=== PATIENT | male | born 1945 | race Caucasian/White ===

== ENCOUNTER 2016-10-17 15:17 | Emergency (ER) | payer OTHER ==
[2016-10-17 15:24] VITALS: RESP 16
--- NOTE | 2016-10-17 15:28 | EDPHY ---
H & P Time Seen by Provider: 10/17/16 15:28 HPI/ROS: CHIEF COMPLAINT: Increasing shakiness and trouble walking HISTORY OF PRESENT ILLNESS: This 71-year-old man presents with the concern for increased shakiness and trouble walking. He said he has had symptoms for at least 3-4 months but he feels they have been worse for 2 weeks. He says that he has chance that both shaky and he feels a little bit unsteady walking, feeling like it is difficulty get started walking and once he is going it is difficult for him to stop. He denies headache or double vision or vertigo or neck pain. He denies ataxia or falling. REVIEW OF SYSTEMS: Eye: Recent improvement in vision after lens implant in the left eye this past week. ENT: no sore throat Cardiac: no chest pain or syncope Pulmonary: no cough or SOB Abdomen: no vomiting, diarrhea, abdominal pain Musculoskeletal: no back pain or neck pain Skin: no rash Neuro: no headache Constitutional: no fever, he has lost about 15 lb over the last 18 months. : no urinary symptoms A comprehensive 10 point review of systems is otherwise negative aside from elements mentioned in the history of present illness. PAST MEDICAL HISTORY: Hypertension and appendectomy at 6 years old. Left corneal lens implant this past Thursday. Social history: Nonsmoker, primary care is Jonathan Gracia at [facility]. No alcohol. General Appearance: Alert and conversant, cooperative. Eyes: No scleral icterus. Pupils 3 mm and reactive extraocular motion intact. ENT, Mouth: Normal mucous membranes. Respiratory: Normal respiratory effort, breath sounds equal, lungs are clear to auscultation. Cardiovascular: Regular rate and rhythm. Gastrointestinal: Abdomen is soft and non tender. Neurological: Alert and oriented x3. Normally conversant. Face symmetric, normal movement and sensation in all extremities. Very slight resting tremor. Normal [id number] and no pronator drift. Not ataxic. Skin: Warm and dry, no rashes. Musculoskeletal: No peripheral edema and no joint swelling. Blood done neck supple. Psychiatric: Not agitated. Emergency Department course/MDM: CBC, Chem 7, noncontrast head CT. Patient's presentation is still highly suggestive of Parkinson's. He does have follow up with the [facility] neurologist at 11:00 a.m. this coming Thursday. 1605: Normal CBC drawn as outpatient. Chemistry normal sodium, glucose. Patient and family state comfortable with discharge, and followup plan. Smoking Status: Never smoked Constitutional: Initial Vital Signs Temperature (C) 37 C 10/17/16 15:22 Heart Rate 88 10/17/16 15:22 Respiratory Rate 16 10/17/16 15:22 Blood Pressure 125/74 H 10/17/16 15:22 O2 Sat (%) 91 L 10/17/16 15:22 O2 Delivery Mode Room Air Allergies/Adverse Reactions: No Known Allergies Allergy (Unverified 10/17/16 15:25) Home Medications: Medication Instructions Recorded Losartan Potassium 10/17/16 Medical Decision Making - Diagnostics Imaging: Negative noncontrast head CT per Dr. Al at 4:05 p.m., reviewed personally by myself. Departure - Departure Disposition: Home, Routine, Self-Care Clinical Impression: Tremor Condition: Good Instructions: Tremors (ED) Additional Instructions: Negative head CT per Dr. Mynor Al from Radiology. Follow-up with [facility] neurologist this Thursday at 11:00 a.m. as previously scheduled. Referrals: Jonathan Gracia MD [Primary Care Provider] - As per Instructions
--- NOTE | 2016-10-17 16:07 | CT ---
CT Head Without Contrast History: Difficulty walking, history of Parkinson's. Comparison: None available. Technique: Axial unenhanced images were obtained from the vertex through the skull base. Dose reduct ion techniques were utilized. Findings: Price-white differentiation is preserved. There is mild diffuse cerebral atrophy with scatte red periventricular and subcortical low attenuation, suggesting chronic microvascular ischemic gliosi s. No intracranial hemorrhage is identified. Cavum septum pellucidum is noted. No extraaxial fluid c ollections are identified. There is no mass, mass effect or evidence of infarct. Atherosclerotic nav cification is present in the distal internal carotid arteries. The skull and skull base are unremarka ble. The paranasal sinuses and mastoid air cells are normally aerated. Impression: 1. No acute intracranial findings. 2. Diffuse cerebral atrophy with scattered periventricular and subcortical low attenuation consistent with chronic microvascular ischemic gliosis. Findings discussed with Rocael Nathan today at 1604 hours.
[2016-10-17 16:52] VITALS: BP 124/69; PULSE 75; TEMP 98.4; O2SAT 92
== END 2016-10-17 16:52 | disposition home or self-care (01) ==
DX: R25.1 Tremor, unspecified (principal); I10 Essential (primary) hypertension; R42 Dizziness and giddiness; Z13.29 Encounter for screening for other suspected endocrine disorder; Z79.899 Other long term (current) drug therapy
CPT/HCPCS: 82607-90

== ENCOUNTER 2016-10-20 12:04 | Emergency (ER) | payer OTHER ==
--- NOTE | 2016-10-20 12:24 | CPEKG ---
Heart Rate: 101 RR Interval: 594 P-R Interval: 144 QRSD Interval: 88 QT Interval: 336 QTC Interval: 436 P [place]: 86 QRS [place]: -66 T Wave [place]: 50 EKG Severity - ABNORMAL ECG - EKG Impression: SINUS TACHYCARDIA Electronically Signed By: Regino Alonso 20-Oct-2016 14:53:26
--- NOTE | 2016-10-20 12:57 | EDPHY ---
H & P Stated Complaint: seen last week at ed and pcp for same "feels shaky and disoriented" yet A&O Time Seen by Provider: 10/20/16 12:14 HPI/ROS: CHIEF COMPLAINT: Increasing weakness HISTORY OF PRESENT ILLNESS: The patient presents to the ED with complaints of increasing weakness. The patient was seen in the ED approximately 3 days ago for similar complaints. The patient reportedly was referred to Neurology who he is scheduled to see tomorrow for possible evaluation of new onset Parkinson' s disease. The patient denies taking any new medications. He is currently taking lisinopril. The patient denies fever, cough or congestion. He reports global weakness. He denies fall, headache, focal numbness or weakness. The patient has no complaints of dysuria. He denies recent antibiotic use. He denies acute pain. REVIEW OF SYSTEMS: A comprehensive 10 point review of systems is otherwise negative aside from elements mentioned in the history of present illness. Source: Patient Exam Limitations: No limitations - Personal History Current Tetanus/Diphtheria Vaccine: Yes Tetanus Vaccine Date: < 10 YEARS - Medical/Surgical History Hx Asthma: No Hx Chronic Respiratory Disease: No Hx Diabetes: No Hx Cardiac Disease: No Hx Renal Disease: No Hx Cirrhosis: No Hx Alcoholism: No Hx HIV/AIDS: No Hx Splenectomy or Spleen Trauma: No Other PMH: IMPLANT LEFT EYE - Social History Smoking Status: Never smoked - Physical Exam Exam: General Appearance: Alert, no distress Eyes: Pupils equal and round no pallor or injection ENT, Mouth: Mucous membranes moist Respiratory: There are no retractions, lungs are clear to auscultation Cardiovascular: Regular rate and rhythm Gastrointestinal: Abdomen is soft and nontender, no masses, bowel sounds normal Neurological: Alert and oriented x4, facial expression consistent with possible underlying Parkinson's, mild cogwheel rigidity noted Skin: Warm and dry, no rashes Musculoskeletal: Neck is supple nontender Extremities: symmetrical, full range of motion Psychiatric: Patient is oriented X 3, there is no agitation Constitutional: Initial Vital Signs Temperature (C) 36.4 C 10/20/16 12:10 Heart Rate 112 H 10/20/16 12:10 Respiratory Rate 20 10/20/16 12:10 Blood Pressure 159/88 H 10/20/16 12:10 O2 Sat (%) 94 10/20/16 12:10 O2 Delivery Mode Room Air Allergies/Adverse Reactions: No Known Allergies Allergy (Verified 10/20/16 12:09) Home Medications: Medication Instructions Recorded Losartan Potassium 10/17/16 Medical Decision Making ED Course/Re-evaluation: I reviewed the results of the CT scan performed in the emergency department 3 days ago along with the patient's outpatient laboratory studies which demonstrated a slightly elevated BUN [address] report from 3 days ago reveals: CT Head Without Contrast Impression: 1. No acute intracranial findings. 2. Diffuse cerebral atrophy with scattered periventricular and subcortical low attenuation consistent with chronic microvascular ischemic gliosis. The patient presents to the ED with clinical signs of mild dehydration in the setting of likely untreated Parkinson's disease. The patient did received 2 L of IV fluids. Laboratory testing was performed which demonstrated evidence of dehydration with an elevated BUN. The patient has no evidence of a urinary tract infection. The patient was re-evaluated at 2:45 p.m. and is comfortable being discharged home as he does have follow up with Neurology tomorrow. The patient will be staying with his family members until that time. They are comfortable with his plan to be discharged. Differential Diagnosis: Differential diagnosis considered includes Parkinson's disease, urinary tract infection, dehydration, metabolic abnormality, labyrinthitis, intracranial hemorrhage - Data Points Laboratory Results: Laboratory Results 10/20/16 12:25 10/20/16 12:25 10/20/16 10/20/16 13:09 12:25 WBC 10.28 H 10^3/uL (3.80-9.50) RBC 5.04 10^6/uL (4.40-6.38) Hgb 14.7 g/dL (13.7-17.5) Hct 43.7 % (40.0-51.0) MCV 86.7 fL (81.5-99.8) MCH 29.2 pg (27.9-34.1) MCHC 33.6 g/dL (32.4-36.7) RDW 14.3 % (11.5-15.2) Plt Count 288 10^3/uL (150-400) MPV 10.2 fL (8.7-11.7) Neut % (Auto) 81.4 H % (39.3-74.2) Lymph % (Auto) 10.0 L % (15.0-45.0) [place] % (Auto) 7.9 % (4.5-13.0) Eos % (Auto) 0.1 L % (0.6-7.6) Baso % (Auto) 0.3 % (0.3-1.7) Nucleat RBC Rel Count 0.0 % (0.0-0.2) Absolute Neuts (auto) 8.37 H 10^3/uL (1.70-6.50) Absolute Lymphs (auto) 1.03 10^3/uL (1.00-3.00) Absolute Monos (auto) 0.81 H 10^3/uL (0.30-0.80) Absolute Eos (auto) 0.01 L 10^3/uL (0.03-0.40) Absolute Basos (auto) 0.03 10^3/uL (0.02-0.10) Absolute Nucleated RBC 0.00 10^3/uL (0-0.01) Immature Gran % 0.3 % (0.0-1.1) Immature Gran # 0.03 10^3/uL (0.00-0.10) Sodium 147 H mEq/L (134-144) Potassium 4.3 mEq/L (3.5-5.2) Chloride 109 mEq/L (97-110) Carbon Dioxide 26 mEq/l (22-31) Anion Gap 12 mEq/L (8-16) BUN 40 H mg/dL (7-23) Creatinine 0.9 mg/dL (0.7-1.3) Estimated GFR > 60 Glucose 139 H mg/dL (70-100) Calcium 9.0 mg/dL (8.5-10.4) Urine Color YELLOW Urine Appearance HAZY Urine pH 5.0 (5.0-7.5) Ur Specific [place] 1.025 (1.002-1.030) Urine Protein 1+ H (NEGATIVE) Urine Ketones TRACE H (NEGATIVE) Urine Blood 2+ H (NEGATIVE) Urine Nitrate NEGATIVE (NEGATIVE) Urine Bilirubin NEGATIVE (NEGATIVE) Urine Urobilinogen NEGATIVE EU (0.2-1.0) Ur Leukocyte Esterase NEGATIVE (NEGATIVE) Urine RBC 1-3 /hpf (0-3) Urine WBC NONE SEEN /hpf (0-3) Ur Epithelial Cells TRACE /lpf (NONE-1+) Urine Mucus TRACE /lpf (NONE-1+) Ur Culture Indicated? NOT INDICATED (NI) Urine Glucose NEGATIVE (NEGATIVE) Medications Given: Discontinued Medications Sodium Chloride (Ns) 1,000 mls @ 0 mls/hr IV ONCE ONE PRN Reason: Wide Open Stop: 10/20/16 13:37 Last Admin: 10/20/16 13:40 Dose: 1,000 mls Sodium Chloride (Ns) 1,000 mls @ 0 mls/hr IV ONCE ONE PRN Reason: Wide Open Stop: 10/20/16 13:37 Last Admin: 10/20/16 14:20 Dose: 1,000 mls Departure - Departure Disposition: Home, Routine, Self-Care Clinical Impression: Dizziness, Dehydration Condition: Good Instructions: Dizziness (ED), Lightheadedness (ED) Additional Instructions: 1. Please follow up as scheduled with your lead pony rider and neurologist on Thursday.
[2016-10-20 12:59] LABS: % IMMATURE GRANULYOCYTES 0.3 % (0.0-1.1); ABSOLUTE IMMATURE GRANULOCYTES 0.03 10^3/uL (0.00-0.10); ADD DIFF? NO; ADD MORPH? NO; ADD SCAN? NO; ATYPICAL LYMPHOCYTE FLAG 0 (0-99); FRAGMENT RBC FLAG 0 (0-99); HEMATOCRIT 43.7 % (40.0-51.0); HEMOGLOBIN 14.7 g/dL (13.7-17.5); LEFT SHIFT FLG 0 (0-99); LIPEMIA HEMOLYSIS FLAG 80 (0-99); MEAN CELL HEMOGLOBIN 29.2 pg (27.9-34.1); MEAN CELL HEMOGLOBIN CONCENTR. 33.6 g/dL (32.4-36.7); MEAN CELL VOLUME 86.7 fL (81.5-99.8); MEAN PLATELET VOLUME 10.2 fL (8.7-11.7); PLATELET CLUMPS FLAG 0 (0-99); PLATELET COUNT 288 10^3/uL (150-400); RED BLOOD CELL COUNT 5.04 10^6/uL (4.40-6.38); RED CELL DISTRIBUTION WIDTH 14.3 % (11.5-15.2)
[2016-10-20 13:08] LABS: ANION GAP 12 mEq/L (8-16); CARBON DIOXIDE 26 mEq/l (22-31); CHLORIDE 109 mEq/L (97-110); CREATININE 0.9 mg/dL (0.7-1.3); GLOMERULAR FILTRATION RATE > 60; GLUCOSE 139 mg/dL (70-100); POTASSIUM 4.3 mEq/L (3.5-5.2); SODIUM 147 mEq/L (134-144)
[2016-10-20 13:25] LABS: COLOR YELLOW; LEUKOCYTE ESTERASE,URINE NEGATIVE (NEGATIVE); NITRITE,URINE NEGATIVE (NEGATIVE)
[2016-10-20 13:30] LABS: MUCUS TRACE /lpf (NONE-1+)
[2016-10-20 13:31] LABS: WBC,URINE NONE SEEN /hpf (0-3)
[2016-10-20] MEDS ORDERED: NS 1,000 ML IV ONE ×2 (13:36)
[2016-10-20 13:56] VITALS: RESP 14; O2SAT 96
[2016-10-20 14:56] VITALS: BP 133/78; PULSE 70; TEMP 99
== END 2016-10-20 14:55 | disposition home or self-care (01) ==
DX: R42 Dizziness and giddiness (principal); E86.0 Dehydration; R00.0 Tachycardia, unspecified

== ENCOUNTER 2016-10-30 10:30 | Inpatient (IN) | payer OTHER ==
[2016-10-30 11:23] LABS: % IMMATURE GRANULYOCYTES 0.3 % (0.0-1.1); ABSOLUTE IMMATURE GRANULOCYTES 0.03 10^3/uL (0.00-0.10); ADD DIFF? NO; ADD MORPH? NO; ADD SCAN? NO; ATYPICAL LYMPHOCYTE FLAG 0 (0-99); FRAGMENT RBC FLAG 0 (0-99); HEMATOCRIT 40.3 % (40.0-51.0); HEMOGLOBIN 13.4 g/dL (13.7-17.5); LEFT SHIFT FLG 0 (0-99); LIPEMIA HEMOLYSIS FLAG 80 (0-99); MEAN CELL HEMOGLOBIN 28.9 pg (27.9-34.1); MEAN CELL HEMOGLOBIN CONCENTR. 33.3 g/dL (32.4-36.7); PLATELET CLUMPS FLAG 0 (0-99); PLATELET COUNT 334 10^3/uL (150-400); RED BLOOD CELL COUNT 4.63 10^6/uL (4.40-6.38); RED CELL DISTRIBUTION WIDTH 14.2 % (11.5-15.2)
[2016-10-30 11:49] LABS: ANION GAP 10 mEq/L (8-16); CALCIUM 8.6 mg/dL (8.5-10.4); CARBON DIOXIDE 25 mEq/l (22-31); CHLORIDE 103 mEq/L (97-110); CREATININE 0.8 mg/dL (0.7-1.3); ETHANOL SERUM < 10 mg/dL (0-10); GLOMERULAR FILTRATION RATE > 60; GLUCOSE 90 mg/dL (70-100); POTASSIUM 4.9 mEq/L (3.5-5.2); SODIUM 138 mEq/L (134-144)
[2016-10-30 12:19] LABS: COLOR YELLOW; LEUKOCYTE ESTERASE,URINE NEGATIVE (NEGATIVE); NITRITE,URINE NEGATIVE (NEGATIVE)
--- NOTE | 2016-10-30 12:36 | EDPHY ---
HPI/HX/ROS/PE/MDM Narrative: Chief complaint: Anxiety and paranoia HPI: 71-year-old male being brought in by his son for concerns about increasing anxiety and paranoia. Patient has had multiple stressors recently. These include recent lens replacement in his left eye. Patient has also been currently worked up by Neurology, Dr. wang, for possible diagnosis of Parkinson' s disease. Patient has also been having concerns about his financial situation. This patient has been feeling increasingly anxious and feels that he has not have adequate funds at this time. Patient's son states that he has been seemingly increasingly irrational and anxious. Today the patient became anxious and the son was unable to calm him down. Patient denies recent illness. No fevers or chills. No nausea or vomiting. No chest pain or shortness of breath. Patient admits to being feeling anxious. Son denies any no short-term memory loss. Patient is not suicidal at this time. Denies feeling depressed. Denies any intentional ingestions. ROS: 10 point Review of Systems is negative except as noted in the HPI. Physical exam: Gen: Awake, Alert, No Distress HEENT: Nose: no rhinorrhea Eyes: PERRLA, EOMI Mouth: Moist mucosa Neck: Supple, no JVD Chest: nontender, lungs clear to auscultation Heart: S1, S2 normal, no murmur Abd: Soft, non-tender, no guarding Back: no CVA tenderness, no midline tenderness Ext: no edema, non-tender Skin: no rash Neuro: CN II-XII intact, Sensation grossly intact, Strength 5/5 in bilateral upper and lower extremities (Reggie Orozco) ED Course: 71-year-old male with multiple stress presenting with anxiety and possible paranoia secondary to this. Sinus concerned about his changes in mental state. Patient hears awake and alert and aye for safety. Will medically clear him and asked for mental health evaluation so that we can provide him resources for increasing stressors and anxiety. Pt is medically cleared. 1500 Pt s/o to Dr. Gonzalez pending evaluation. (Reggie Orozco) I assumed care of this patient from Dr. Ruiz at 3:00 p.m.. Patient has been cooperative while under my care. He underwent a mental health evaluation and is felt appropriate for inpatient treatment. He is being admitted to [facility]. I have signed the EMTALA form. (Alysia Gonzalez) - Data Points Laboratory Results: Laboratory Results 10/30/16 11:15 10/30/16 11:15 10/30/16 10/30/16 11:45 11:15 WBC 10.24 H 10^3/uL (3.80-9.50) RBC 4.63 10^6/uL (4.40-6.38) Hgb 13.4 L g/dL (13.7-17.5) Hct 40.3 % (40.0-51.0) MCV 87.0 fL (81.5-99.8) MCH 28.9 pg (27.9-34.1) MCHC 33.3 g/dL (32.4-36.7) RDW 14.2 % (11.5-15.2) Plt Count 334 10^3/uL (150-400) MPV 10.0 fL (8.7-11.7) Neut % (Auto) 84.0 H % (39.3-74.2) Lymph % (Auto) 9.3 L % (15.0-45.0) [place] % (Auto) 6.0 % (4.5-13.0) Eos % (Auto) 0.2 L % (0.6-7.6) Baso % (Auto) 0.2 L % (0.3-1.7) Nucleat RBC Rel Count 0.0 % (0.0-0.2) Absolute Neuts (auto) 8.61 H 10^3/uL (1.70-6.50) Absolute Lymphs (auto) 0.95 L 10^3/uL (1.00-3.00) Absolute Monos (auto) 0.61 10^3/uL (0.30-0.80) Absolute Eos (auto) 0.02 L 10^3/uL (0.03-0.40) Absolute Basos (auto) 0.02 10^3/uL (0.02-0.10) Absolute Nucleated RBC 0.00 10^3/uL (0-0.01) Immature Gran % 0.3 % (0.0-1.1) Immature Gran # 0.03 10^3/uL (0.00-0.10) Sodium 138 mEq/L (134-144) Potassium 4.9 mEq/L (3.5-5.2) Chloride 103 mEq/L (97-110) Carbon Dioxide 25 mEq/l (22-31) Anion Gap 10 mEq/L (8-16) BUN 18 mg/dL (7-23) Creatinine 0.8 mg/dL (0.7-1.3) Estimated GFR > 60 Glucose 90 mg/dL (70-100) Calcium 8.6 mg/dL (8.5-10.4) TSH 2.080 uIU/mL (0.465-4.680) Urine Color YELLOW Urine Appearance CLEAR Urine pH 7.0 (5.0-7.5) Ur Specific [place] 1.014 (1.002-1.030) Urine Protein NEGATIVE (NEGATIVE) Urine Ketones NEGATIVE (NEGATIVE) Urine Blood 1+ H (NEGATIVE) Urine Nitrate NEGATIVE (NEGATIVE) Urine Bilirubin NEGATIVE (NEGATIVE) Urine Urobilinogen NEGATIVE EU (0.2-1.0) Ur Leukocyte Esterase NEGATIVE (NEGATIVE) Urine RBC 3-5 H /hpf (0-3) Urine WBC 1-3 /hpf (0-3) Ur Epithelial Cells NONE SEEN /lpf (NONE-1+) Urine Glucose NEGATIVE (NEGATIVE) Urine Opiates Screen NEGATIVE (NEGATIVE) Urine Barbiturates NEGATIVE (NEGATIVE) Ur Phencyclidine Scrn NEGATIVE (NEGATIVE) Ur Amphetamine Screen NEGATIVE (NEGATIVE) U Benzodiazepines Scrn NEGATIVE (NEGATIVE) Urine Cocaine Screen NEGATIVE (NEGATIVE) U Marijuana (THC) Screen NEGATIVE (NEGATIVE) Ethyl Alcohol < 10 mg/dL (0-10) Medications Given: Discontinued Medications Lorazepam (Ativan) 1 mg PO EDNOW ONE Stop: 10/30/16 19:58 Last Admin: 10/30/16 20:02 Dose: 1 mg General Time Seen by Provider: 10/30/16 10:56 Initial Vital Signs: Initial Vital Signs Temperature (C) 36.4 C 10/30/16 10:31 Heart Rate 97 10/30/16 10:31 Respiratory Rate 16 10/30/16 10:31 Blood Pressure 162/86 H 10/30/16 10:31 O2 Sat (%) 94 10/30/16 10:31 O2 Delivery Mode Room Air Allergies/Adverse Reactions: No Known Allergies Allergy (Verified 10/20/16 12:09) Home Medications: Medication Instructions Recorded Losartan Potassium [Cozaar 25 mg 25 mg PO DAILY 10/17/16 (*)] Departure - Departure Disposition: [facility] IP Clinical Impression: Anxiety Condition: Good
[2016-10-30] MEDS ORDERED: LORazepam 1 MG TAB PO ONE (19:57)
[2016-10-31] MEDS ORDERED: ACETAMINOPHEN 325 MG TAB PO PRN (01:28)
[2016-10-31] MEDS ORDERED: MAGNESIUM HYDROXIDE 30 ML UDCUP PO PRN (01:28)
[2016-10-31] MEDS ORDERED: LORazepam 0.5 MG TAB PO PRN (01:28)
[2016-10-31] MEDS ORDERED: MAG HYDROX/AL HYDROX/SIMETH 30 ML UDCUP PO PRN (01:28)
[2016-10-31] MEDS ORDERED: LOSARTAN POTASSIUM 25 MG TAB PO SCH (12:00)
[2016-10-31] MEDS: LOSARTAN POTASSIUM 50 MG TAB PO SCH (13:18)
--- NOTE | 2016-10-31 16:40 | BAPA ---
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 The patient was reportedly in his normal state of physica l and mental health until approximately 2 weeks prior to admission. At that time he had a lens impla nt surgery on his eye, and he states that as soon as he woke up he felt "obsessed with fear." He rep orts intense anxiety, and is focused now on believing that he is running out of money. His son gave a collateral history to the emergency department that the patient speaks nonstop of not having enough money to pay his bills, and the fact that he is going to become destitute and a burden on the family . He has not been eating or buying food because he does not want to spend the money and has lost 15 pounds. He admits to being "afraid of everything" and states that he cannot sleep at night and "worr ies constantly." As mentioned above, the patient has no history of psychiatric treatments or similar symptoms to this. Patient's son states that the family did not see this coming, or was not able to relate it to any s pecific inciting factor except for this surgery. Conversation with the patient's outpatient internis t, Dr. Jonathan Gracia, reveals that he has only seen him one time, at which time he diagnosed him wit h likely Parkinson disease. He referred him for a CT scan of the head, that revealed diffuse atrophy with scattered periventricular and subcortical low attenuation, consistent with chronic microvascula r ischemic gliosis. He then also referred the patient for a neurologic evaluation with a neurologist who works in their office, and was diagnosed with Parkinson disease. The neurologist suggested they do an MRI, which was actually scheduled for today and that patient was not able to attend. Dr. Jake mcghee does not know the patient well, and states that he had none of these paranoid or psychotic symp toms when he saw him. PAST PSYCHIATRIC HISTORY: Noncontributory for any previous psychiatric treatments of any kind. He h as had no previous hospitalizations, and has taken no previous psychotropic medications. ALLERGIES: No known medical allergies. CURRENT MEDICATIONS: Losartan 25 mg daily. PAST MEDICAL HISTORY: Significant for hypertension, and a recent diagnosis of likely Parkinson disea se. SOCIAL HISTORY: The patient was for 20 years and in 1991. He has not remarried. Ronaldo canas has a son who lives in [place] and is his primary support, and a daughter in [place]. He himse lf lives in [place] and is retired. 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 He has a Bachelor of Science in electrical engineering. He was born and raised in [place]. 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 FAMILY HISTORY: Patient's mother had Parkinson disease, otherwise noncontributory for psychiatric il lness. LABORATORY DATA: Admission laboratory, CBC shows a white count of 10.24, neutrophils 84%. Serum anuradha mistries are normal, TSH is normal. Urinalysis showed 3-5 red cells, with 1+ blood, and 1-3 cells. No epithelial cells or casts are noted, and LE and nitrites are negative. Urine drug screen was negative for all substances, alcohol was less than detectable. MENTAL STATUS EXAMINATION: Reveals a disheveled male, wearing hospital garb. He has an od d smile on his face and though he is engaging his eye contact is prolonged with a decreased eye blink . He is somewhat stiff and has a mild Parkinsonian gait. He is engaging and conversant, and while ronaldo canas displays a generally linear thought process it is indicated with his paranoid themes. His thought content reveals the continued belief that he is going to go broke and that he is a burden to his fami ly. He subjectively complains of anxiety. He is alert and oriented to person, place, time, and situ ation, his sensorium is clear. There is no evidence of delirium. There are no gross cognitive defic its appreciated. Patient's premorbid intellect appears to be above average as evidenced by his educa tional and occupational histories. He denies any thoughts of suicide. His insight and judgment appe ar to be impaired. IMPRESSION: 1. 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 2. Recent surgery. 3. Marginal support. 4. Advanced age. The patient is a 71-year-old male, with no previous psychiatric history, who presents with some acute paranoia. He is gravely disabled as he is unable to think or reason outside of these delu sional systems, and has begun to quit eating or care for himself because of his delusions. He is ple asant and cooperative, and willing to participate in treatment. He does, however, completely lack in sight into the nature and severity of his illness. Despite his acute paranoia his recent diagnosis o f Parkinson is concerning, and will certainly give us pause before we use any antipsychotics to treat his paranoia. I would like to obtain a neurologic consultation and see if they have other recommend ations, or would like to order the MRI that he was supposed to have had today. ESTIMATED LENGTH OF STAY: Is 3 to 5 days. /[id number]/MODL
--- NOTE | 2016-10-31 19:30 | BCON ---
[f rep st] BEHAVIORAL HEALTH CONSULTATION DATE OF CONSULTATION: 10/31/2016 REFERRING PHYSICIAN: Dr. Bush REASON FOR CONSULTATION: Medical clearance for inpatient behavioral health stay. HISTORY OF PRESENT ILLNESS: The patient came to the emergency department, brought in by his son, with increasing anxiety and paranoia. He reports that he had a recent lens replacement in his left eye and that the tape that was used for an eye patch after the procedure caused neurologic damage. The patient 's son had reported that he was increasingly irrational and anxious. The son was unable to calm him down yesterday, so brought him to the emergency department. He was evaluated by the mental health team and admitted for further psychiatric care. He is currently without any acute medical complaints. PAST MEDICAL HISTORY: He has a history of hypertension. He denies any other history of medical illnesses. PAST SURGICAL HISTORY: He denies any surgical history. MEDICATIONS: He was taking losartan 25 mg p.o. daily. ALLERGIES: There are no known drug allergies. SOCIAL HISTORY: He is . He lives alone. He has a local son and omebrvin-hc-zja. 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 He is a nonsmoker and nondrinker. FAMILY HISTORY: Noncontributory. REVIEW OF SYSTEMS: He thinks he has lost some weight, since he does not think he has been eating and drinking enough while he has been in this anxious state. He denies loss of sense of smell or hearing loss. He denies fevers or chills. nausea, vomiting, constipation, diarrhea, headaches, numbness, tingling or weakness of the extremities. He has not had falls. He reports that his handwriting has gotten smaller and otherwise a 10-point review of systems is negative. PHYSICAL EXAM: VITAL SIGNS: Blood pressure is 139/62, heart rate is 82, respiratory rate is 16, oxygen saturation is 95% on room air. Temperature is 36.8 degrees centigrade. His weight is 64.4 kg for a body mass index of 22.9. GENERAL: This is a well-nourished, well-developed man, appears his chronologic age. Cooperative and in no acute distress. HEENT: Extraocular movements are intact. Pupils are equal, round, and reactive to light and accommodation. Mucous membranes are moist. Dentition is in good condition. NECK: Supple. HEART: There is a regular rate and rhythm with no murmurs, rubs, or gallops. LUNGS: Clear to auscultation bilaterally. ABDOMEN: Soft, nontender, nondistended with normoactive bowel sounds. EXTREMITIES: There is no cyanosis , clubbing, or edema. Radial and dorsalis pedis pulses are 2+ bilaterally. NEUROLOGIC: He is alert and oriented x3. Cranial nerves 2-12 are grossly intact. There is no focal weakness. Sensation is intact to light touch. He has bradykinesia with a reduced blink rate and otherwise slow movements. He has been somewhat masked facies. He has a slow gait, narrow based with en bloc turning. LABORATORY STUDIES: Drawn in the emergency department: Hematology showed an elevated white blood cell count at 10.24 without a left shift. Hemoglobin was slightly low at 13.4. MCV was normal. Platelet count was normal. Serum chemistry revealed normal renal function, electrolytes, and TSH. Urine showed 1 + blood and 3-5 red blood cells. Toxicology screen in the serum was negative for ethyl alcohol and the urine was negative for any substances of abuse. Other recent labs on 10/17/2016: His vitamin B12 level was normal at 424. His folate was normal at 17.5. TSH was normal at 1.92. He has had an elevated total bilirubin in June of 2016 and in 2014 at 1.5. Liver functions were otherwise within normal limits. His lipid panel done on 10/17/2016 was low risk with a low cholesterol at 107 and a normal HDL at 52. IMAGING: A head CT was done on 10/17/2016 which showed diffuse cerebral atrophy with scattered periventricular and subcortical low attenuation, consistent with chronic microvascular ischemic gliosis. Otherwise, there were no acute intracranial findings. ASSESSMENT/RECOMMENDATIONS: 1. Mental health issues. Pending further evaluation and management per Psychiatry and the mental health team. 2. Hypertension. Advised continuing losartan. He said he had missed it for several days which might explain his elevated blood pressure in the emergency department. He is, however, normotensive today. 3. Likely parkinsonism. Given his head CT, query vascular parkinsonism versus degenerative. He is planning to have an evaluation by a neurologist after his discharge from inpatient psychiatry. 4. Hematuria. There was an abdominal CT done in the past to evaluate it. If it persists, would advise urology evaluation after discharge. I see no medical contraindications to the patient's continued stay in the inpatient behavioral health unit or to any psychiatric medications or procedures. Thank you very much for including me in the care of this patient and please do not hesitate to contact me or the hospitalist service should there be need for further medical evaluation. /[id number]/MODL MTDD
[2016-11-01] MEDS: LOSARTAN POTASSIUM 50 MG TAB PO SCH (09:38)
--- NOTE | 2016-11-01 19:40 | SOAPPROG ---
SOAP Progress Note Assessment/Plan: Assessment: 71yo CM with no prior psych hx, with onset of Parkinsonian sxs 07/2016 noted when unable to use chopsticks, with incr anxiety prior to R eye lens replacement 2 wks ago, subsequently noted to have onset and progression of delusional sxs resulting in decr self care, poor po intake, brought to ED by family, admitted on M-1 for grave disability. 11/03/16 09:29 per staff, slept 9.5 hrs. anxious, slow, lethargic, family reported pt w/dozing off mid-sentence in recent days and continues w/irrational financial concerns pt talked of feeling anxious, and does feel thoughts and speed are slowed. denies feeling tired. slept well. expressed concerns that the glue from eye patch after lens surgery must have gotten absorbed into his eye and worked its way to brain/back of his head to occipital region where he feels pressure currently. reports +urinary urgency and has had occasional accident but no other incontinence, no dysuria. some neck stiffness, not new but recent onset over last several days. does feel some stiffness, and able to t/a his mother having had PD-like dz which he watched progress over many yrs until lost mobility and "drooled", and she at 94yo. Pt does worry about having the same. worried about whether current hospitalization was covered by insurance. calm, cooperative, pleasant, engaged, wearing glasses which are not clean, neatly dressed, good eye contact, low vol speech, nml rate but with mild masked facies, able to smile appropriately and is A/Ox3. anxious mood, affect constricted, denies feeling depressed. denies any si/hi or ah/vh. continues to express delusional concerns about finances despite numerous reassurances, p/e: +cogwheel rigidity BUE but no resting tremor noted. steady gait. Plan: -requested neurology consult, will see pt tomorrow. based on provided hx and review of records, no acute concerns for today -lorazepam 0.5mg prn anxiety. not using. add melatonin 3mg hs prn insomnia. -avoid any neuroleptics due to risks in parkinson sydromes, incl possible LBD -M-1 exp 11/02 2029 Objective: Vital Signs Temp Pulse Resp BP Pulse Ox 36.2 C 84 18 132/84 H 94 11/01/16 09:41 11/01/16 09:41 11/01/16 09:41 11/01/16 09:41 11/01/16 09:41 - Time Spent With Patient Time Spent With Patient: 25 min - Pending Discharge Pending Discharge Within 24 Hours: No Pending Discharge Within 48 Hours: No ICD10 Worksheet Patient Problems: Problems Problem Status Diagnosed Delusional disorder Acute - ICD10 Problem Qualifiers (1) Anxiety (2) Delusional disorder
[2016-11-01 20:00] LABS: % IMMATURE GRANULYOCYTES 0.5 % (0.0-1.1); ABSOLUTE IMMATURE GRANULOCYTES 0.06 10^3/uL (0.00-0.10); ADD DIFF? NO; ADD MORPH? NO; ADD SCAN? NO; ATYPICAL LYMPHOCYTE FLAG 0 (0-99); FRAGMENT RBC FLAG 0 (0-99); HEMATOCRIT 39.6 % (40.0-51.0); HEMOGLOBIN 13.1 g/dL (13.7-17.5); LEFT SHIFT FLG 0 (0-99); LIPEMIA HEMOLYSIS FLAG 80 (0-99); MEAN CELL HEMOGLOBIN 29.2 pg (27.9-34.1); MEAN CELL HEMOGLOBIN CONCENTR. 33.1 g/dL (32.4-36.7); MEAN CELL VOLUME 88.2 fL (81.5-99.8); MEAN PLATELET VOLUME 10.2 fL (8.7-11.7); PLATELET CLUMPS FLAG 0 (0-99); PLATELET COUNT 380 10^3/uL (150-400); RED BLOOD CELL COUNT 4.49 10^6/uL (4.40-6.38); RED CELL DISTRIBUTION WIDTH 13.9 % (11.5-15.2)
[2016-11-01 20:05] LABS: COLOR PALE YELLOW; LEUKOCYTE ESTERASE,URINE NEGATIVE (NEGATIVE); NITRITE,URINE NEGATIVE (NEGATIVE)
[2016-11-01] MEDS: MELATONIN 3 MG TAB PO PRN (23:55)
[2016-11-02] MEDS: LOSARTAN POTASSIUM 50 MG TAB PO SCH (07:51)
--- NOTE | 2016-11-02 11:16 | SOAPPROG ---
SOAP Progress Note Assessment/Plan: Assessment: 71yo CM with no prior psych hx, with onset of Parkinsonian sxs 07/2016 noted when unable to use chopsticks, with incr anxiety prior to R eye lens replacement 2 wks ago, subsequently noted to have onset and progression of delusional sxs resulting in decr self care, poor po intake, brought to ED by family, admitted on M-1 for grave disability. 11/01/16 16:29 per staff, slept 9.5 hrs. anxious, slow, lethargic, family reported pt w/dozing off mid-sentence in recent days and continues w/irrational financial concerns pt talked of feeling anxious, and does feel thoughts and speed are slowed. denies feeling tired. slept well. expressed concerns that the glue from eye patch after lens surgery must have gotten absorbed into his eye and worked its way to brain/back of his head to occipital region where he feels pressure currently. reports +urinary urgency and has had occasional accident but no other incontinence, no dysuria. some neck stiffness, not new but recent onset over last several days. does feel some stiffness, and able to t/a his mother having had PD-like dz which he watched progress over many yrs until lost mobility and "drooled", and she at 94yo. Pt does worry about having the same. worried about whether current hospitalization was covered by insurance. calm, cooperative, pleasant, engaged, wearing glasses which are not clean, neatly dressed, good eye contact, low vol speech, nml rate but with mild masked facies, able to smile appropriately and is A/Ox3. anxious mood, affect constricted, denies feeling depressed. denies any si/hi or ah/vh. continues to express delusional concerns about finances despite numerous reassurances, p/e: +cogwheel rigidity BUE but no resting tremor noted. steady gait. Plan: -requested neurology consult, will see pt tomorrow. based on provided hx and review of records, no acute concerns for today -lorazepam 0.5mg prn anxiety. not using. add melatonin 3mg hs prn insomnia. -avoid any neuroleptics due to risks in parkinson sydromes, incl possible LBD -M- exp 11/02 2030 also repeated CBC and UA due to noted mild incr WBC, f/u urinary complaints. 11/02/16 10:01 per staff, pt slept uneventfully last night seen by neuro this AM, and Dr. Andre came to discuss findings with team. has some atypical findings and history but concerns present for degenerative parkinsonian syndrome, consider LBD. neuro to t/w family as well. Pt did well on MMSE 30/30 and with verbal fluency. on 1:1, pt reports overall feeling well. states he is in psych hosp for " extreme anxiety" he relates to glue from eye patch he wore after lens replacement. good eye contact. pleasant. smiling appropriately on interaction, engaged. does admit to having some depressed feelings about being here and with recent change in physical status, but denies hx of depr. does still have some anxiety. seems due to delusional thoughts but also worries about medical condition. denies any SI, denies AH/VH. no other psychotic sxs noted besides delusions about $ and delusional interpretations of his physical symptoms. denies any sleep disturbance since in hosp, although noted with disturbed sleep by family prior to admit. does still feel he is thinking and speaking overall more slowly, and feels tired while talking. continues to express concerns about financial situation and coverage of any services received in or out of hospital setting. discussed plan to consult ST/OT/PT for eval and to help determine need of services at d/ c. pt asked whether he could refuse these in case not covered by his insurance. denied any abd discomfort, no n/v/d, no cp/sob, no pain. +decr appetite but has been eating here. met with son and sister and patient later in evening during visiting hrs. PLAN: -consult ST,OT,PT for cogn assessment (incl MOCA), and home safety eval to determine level of care/support needed on outpatient basis. currently lives independently and hopes to resume driving after other eye lens replacement done. recommended to pt and family no driving at this time until cleared by neuro and opthamology, also perhaps outpt psychiatry -complete neuro w/u pending, was scheduled for MRI as outpt- would recommend consider doing this while inpt (and any other neuro w/u indicated) as pt may be less likely to f/u with recommendations due to his delusional thinking/concerns and anxiety -cont to avoid any neuroleptics due to possible LBD dx -has lorazepam 0.5mg prn (not using, and concern present for fall risk in elderly prasanth w/PD), may d/c and consider alternative if needed -cont melatonin 3mg qhs prn insomnia -repeat labs done, note cont slight incr in WBC and 1+hematuria. will need f/u w/outpt PCP. -recommend establish with outpt geropsychiatry or neuropsychiatry for ongoing f/ u and monitoring of delusions and mental health status including anxiety/mood and safety, even though not on any psychiatric medications at this time, especially given nature of disease progression and impaired insight -sister coming from [place] to stay with patient for 2 wks, as pt currently resides alone and independently -patient signed in voluntarily. Objective: Vital Signs Temp Pulse Resp BP Pulse Ox 36.2 C 76 18 130/80 H 95 11/02/16 08:35 11/02/16 08:35 11/02/16 08:35 11/02/16 08:35 11/02/16 08:35 Laboratory Results 11/01/16 16:30 - Time Spent With Patient Time Spent With Patient: 25min +25min additional w/patient and family present - Pending Discharge Pending Discharge Within 24 Hours: No Pending Discharge Within 48 Hours: No ICD10 Worksheet Patient Problems: Problems Problem Status Diagnosed Delusional disorder Acute
--- NOTE | 2016-11-02 16:17 | GCON ---
[f rep st] CONSULTATION REFERRING PHYSICIAN: Lois Bush MD HISTORY: The patient is a 71-year-old gentleman who I am asked to see related to concerns of pedrito onism and some psychotic thinking. I have obtained the history in direct conversation with the patie nt as well as speaking to Dr. Jonathan Gracia and also discussions with the patient's son and his trupti harman psychiatrist. He says that things started approximately 4 or 5 months ago when there was eviden ce of some tremulousness and some slowing down of activity. There were plans for a serial set of eye treatments to fix cataract issues. He became rather anxious prior to going to those procedures, and his son said that was atypical for him. He had surgical treatment in October 16 on the left eye a nd technically that went well, but after this he continued to be rather anxious and started to have e scalation of his worries and concerns and started to have perceptions that perhaps this caused him to have a setback in his physical skills including loss of balance. He was thinking that something abo ut the adhesive or the eyedrops might have triggered some of his symptoms. When I ask him about that now, he acknowledges that symptoms had started before that but was wondering whether this might have triggered the acute exacerbation. He had evaluation with Dr. Gracia and then subsequent referral to Dr. Galvez and evidence of parkinsonism has been documented with plans for further workup. He had a head CT that was unremarkable, and there are plans for a brain MRI but that has not occurred yet. A few days ago when the symptoms were increased, he was advised him to come to the hospital for evalu ation. His son says that his father was starting to obsess about not having adequate funds to pay fo r anything and was probably not eating or drinking very much and then this further lead to worry abou t finances that are not warranted. He says his father probably realistically has somewhere in the ra nge of a million dollars in liquid assets and additional 400,000 or 500,000 dollars worth of property value. However, the patient could not really be reassured, and his son says that he is very obsesse d and worried about that and seemed very anxious. For that reason, he came to the hospital and has b een admitted to Psychiatry Service. The patient says in general the tremulousness is in both hands and is noticeable when he is using his hands but rarely at rest. He has had some urinary frequency but denies incontinence. He denies any history of acting out his dreams. He acknowledges a little bit of decrease in short-term memory. H e says his writing has been getting a little bit smaller and perhaps his voice is a little bit softer . There have not been clear-cut alleviating or exacerbating factors for these symptoms. Unfortunately, they have been escalating in terms of the psychiatric symptoms just over the last few weeks. The mo tor symptoms have not rapidly changed. PAST MEDICAL HISTORY: Otherwise relatively unremarkable. There is history of hypertension. MEDICATIONS: He was taking losartan for blood pressure. ALLERGIES: No known drug allergies. SOCIAL HISTORY: He is and lives alone in [place]. 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 He does not smoke or drink a lcohol. FAMILY HISTORY: Noncontributory. PHYSICAL EXAMINATION: VITAL SIGNS: Blood pressure is 130/85, pulse of 76, respirations 18, temperat ure 36.2. GENERAL: He is well developed, in no acute distress. EYES: Clear. NECK: Supple with n o bruits or masses. CARDIAC: Regular rate and rhythm with no murmur. EXTREMITIES: No cyanosis or edema. NEUROLOGIC: He scores 30/30 on mini-mental status testing. He was able to name 24 animals i n 1 minute. He is friendly and has a euthymic affect. There is decreased facial expression and a ge neralized bradykinesia. His voice is a little soft but easy to understand. He does not have suicida l or homicidal ideations. As we spoke about the thoughts of the tape and potential effects on his ey e and then causing any of these symptoms, I attempted to explain to him that I do not think it is lik zenia, and there is not a medical reason to think that is the case. He seemed to acknowledge that as b eing reasonable, though I am not certain he fully buys into my explanation. He certainly did not ove rly fixate on this topic. He is not agitated or aggressive. We talked about issues related to diagn osis and potential treatments, and he does have some concerns about cost of medicines and says he freeman s not have his Medicare Part B. He is wondering if that could be delayed. He is hoping he can leave the hospital as soon as possible so we can have his other eye worked on. The pupils are 4 mm and re active. Funduscopic exam unremarkable. No visual field loss. Extraocular movements are intact with perhaps a little bit of difficulty in up gaze but that improved with more practice. The facial move ments are diminished but no weakness. Normal facial sensation. Hearing is preserved. Palate elevat es symmetrically and tongue protrudes midline. No weakness of head turning or shoulder shrug. The m otor examination is characterized by the generalized bradykinesia as well as hypertonicity of the wri sts and elbows. There is no resting tremor. There is minimal, symmetric high-frequency low-amplitud e postural tremor which is slightly present on finger to nose as well but no grossly ataxic movements . Rapid alternating movements are slowed, and there is a decreased amplitude of movements in the almanza ds and feet. Muscle power is well preserved and 5/5. Sensation is preserved for temperature and lig ht touch. Postural reflexes are fairly well maintained on the pull test. When I pulled fairly stron gly, he was able to step back and maintain balance with a single step. His gait is characterized by markedly decreased arm swing. He has relatively upright posture. Stride length is shortened and he turns slowly but maintains balance independently. Reflexes are 1+ and symmetric. LABORATORY STUDIES: White blood cell count of 10,000 on the 9th and 11,000 today, hematocrit of 39%, neutrophils 82%. Chemistry: Normal electrolytes and TSH. Urinalysis: No significant elevation of white cells and 1+ blood documented. Toxicology screen is negative. He has had a reported head CT. There is mild cerebral atrophy and variable degrees of periventricula r white matter change consistent with probable small-vessel disease on an ischemic basis, but no evid ence of an acute or a clear-cut chronic stroke. The ventricles do not seem disproportionately large compared to the sulcal atrophy. I do not see distinct lesions or changes in the basal ganglia. IMPRESSION: The patient has a parkinsonian syndrome and has developed some significant anxiety with some psychotic symptoms manifesting with some paranoia and mild delusions. There has been enough of a problem that he needed hospitalization to try and stabilize these symptoms since he is not really s afe to be alone. He is making decisions that are not appropriate due to paranoia about having no fin ances and is not eating or drinking very well. This means he is at risk for developing further probl ems. He did relatively well on his mini-mental status testing and interacts in a friendly fashion. However, I do not think he is safe to be independent at this point. I do not think it is safe for hi m to drive due to slowness of reflexes and potential impairment of judgment. I had a good conversati on with his son, and he recognizes the limitations. There are potential treatments to consider, but we would like to avoid medications if we can. He may very well have dementia with Lewy bodies given the fact that we have early psychotic symptoms with this parkinsonism as opposed to the longstanding parkinsonism before the development of the neurobehavioral problems. I do not think he has frontotem poral dementia. There is no evidence of acute infection causing this. If we were to offer treatment, the use of rivastigmine 6-12 mg daily has been shown to be effective i n helping some of the psychotic symptoms and dementia with Lewy bodies. The atypical neuroleptics ca n be considered, but these have sometimes significant hypersensitivity and do increase the risk of de ath in patients taking them. He could also potentially be treated with low doses of benzodiazepines, but this also increases risk of complications and should be avoided if possible. As the psychiatris t and I discussed, there is no definitive, best drug to consider that we will have to manage this pur zenia based on the most likely chance of helping him and moving him to a safe place and that may very w ell be some type of direct supervision versus very close home care. He will follow up as an outpatie nt with Dr. Galvez for further management once further disposition can be determined. /[id number]/MODL
[2016-11-03] MEDS: LOSARTAN POTASSIUM 50 MG TAB PO SCH (10:35)
--- NOTE | 2016-11-03 16:15 | SOAPPROG ---
SOAP Progress Note Assessment/Plan: Assessment: Plan: Subjective: Pt seen, discussed with staff, chart reviewed. Appreciate 's Eleazar and Samia's inputs. 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 No behavioral issues. Remains focused on vision. Objective: Vital Signs Temp Pulse Resp BP Pulse Ox 36.6 C 94 16 149/68 H 92 11/03/16 09:15 11/03/16 09:15 11/03/16 09:15 11/03/16 10:35 11/03/16 09:15 Laboratory Results 11/01/16 16:30 MSE: Moderately anxious, interactive. Speech is halting, stuttered at times. Affect is odd, smiling throughout interview. Mood is "better, less worried." TP abbreviated, some derailment. TC reveals less negative perseveration. No visual hallucinations. - Time Spent With Patient Time Spent With Patient: 25" - Pending Discharge Pending Discharge Within 24 Hours: No Pending Discharge Within 48 Hours: No ICD10 Worksheet Patient Problems: Problems Problem Status Diagnosed Delusional disorder Acute
[2016-11-03] MEDS: MELATONIN 3 MG TAB PO PRN (21:53)
[2016-11-04 07:45] VITALS: RESP 13
[2016-11-04 08:58] VITALS: BP 130/63
[2016-11-04] MEDS ORDERED: LOSARTAN POTASSIUM 25 MG TAB PO SCH (09:00)
[2016-11-04 09:09] VITALS: PULSE 89; TEMP 97.9; O2SAT 95
--- NOTE | 2016-11-04 13:09 | BDS ---
[f rep st] BEHAVIORAL HEALTH DISCHARGE SUMMARY REASON FOR ADMISSION: Patient is a 71-year-old male with no previous psychiatric history. He was brought to the hospital by his son because of rather abrupt change in behaviors and thinkin g. He had eye surgery about 2 weeks prior to admission and after that had become increasingly paran oid. 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 He became unable to care for himself, was not eating, and the son brought him in for further evaluation. He was evaluated in the emergen cy department and thought to meet criteria for grave disability and admitted to the [address] [place] [address]. F ull description of the events preceding admission can be found in his admission history dated 2016. ADMITTING DIAGNOSES: 1. 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 2. Recent surgery. 3. Marginal support. 4. Advanced age. ADMISSION PHYSICAL EXAMINATION: Performed by Dr. Zhen Hathaway revealed some Parkinson's, though no other physical findings. ADMISSION LABORATORY: Initial CBC showed a white count up at 10.24 with 84% neutrophils. Repeat on 11/01 showed the white count still up at 11.13 and 82.3%. Serum chemistries were normal. TSH was normal. Urinalysis showed no evidence of infection, though did show some blood, 1+ positive. Urine drug screen was negative for all substances. Alcohol was l ess than detectable. HOSPITAL COURSE: Patient was admitted to the [facility] inpatient unit on an M1 hold. He was pleasant, cooperative, though appeared slightly confused. He interacted well but was very preoccupied with his thoughts of his brain infection and his financial issues. His attention and co ncentration were adequate, though slightly marginal. He displayed an odd affect with smiling freque ntly and was somewhat delayed in his responses. I indicated to him, and later to his son, that we w ere going to observe him before we did anything for fear that he may have a neurologic condition in addition to the Parkinson's that might be made worse by any antipsychotic medications. The patient was seen in consultation by Dr. Eduardo Gracia on 11/02/2016, and he noted the parkinsonism and the possibility of diffuse Lewy body disease. No further studies were ordered at that time. He was in agreement with no medications, especially antipsychotics if at all possible, and so none were prescr ibed. The patient was observed for another 2 days, did seem to calm down and became less focused on some o f his paranoid delusions. He was calm and cooperative, was grooming himself well and eating. His s ister came in from [place] of [place] to be with him and his son was supportive. The treatment team felt that he could be discharged safely to home with this level of support and followup with a neurologis t outpatient. He did not demonstrate other psychiatric symptoms, and no psychiatric followup was re commended. CONDITION ON DISCHARGE: Stable. His affect remained the same, and he was having no thoughts of akilah cide. He was still a bit paranoid, though much less prominently. DISCHARGE MEDICATIONS: Losartan 25 mg daily and melatonin 3 mg at h.s. DISPOSITION: Patient left the hospital with his family. FOLLOWUP: With his outpatient neurologist, Dr. Donovan, at [facility] on 11/06/2016 and wi th his outpatient primary care physician, Dr. Jonathan Gracia, approximately 2 weeks after that. LEGAL COURSE: Patient was converted to a voluntary status with expiration of his M1 hold. /[id number]/MODL
== END 2016-11-04 14:05 | disposition home or self-care (01) | DRG 885 ==
LOC: BBEH 23:55
PROVIDERS: ADMIT Psychiatry & Neurology Behavioral Neurology & Neuropsychiatry; ATTEND Psychiatry & Neurology Psychiatry
DX: F29 Unspecified psychosis not due to a substance or known physiological condition (principal); G20 Parkinson's disease
CPT/HCPCS: 80305; 92610-GN; 97161-GP; 97165-GO; G0480; G8978-GP-CI; G8979-GP-CI; G8980-GP-CI; G8987-GO-CI; G8988-GO-CI; G8989-GO-CI; G8996-GN-CH; G8997-GN-CH; G8998-GN-CH